=== PATIENT | male | born 1975 | race Caucasian/White ===

== ENCOUNTER 2019-06-25 07:44 | Emergency (ER) | payer OTHER ==
[2019-06-25 07:50] VITALS: BP 128/85; PULSE 90; RESP 18; TEMP 97.9
--- NOTE | 2019-06-25 08:09 | XR ---
EXAMINATION TYPE: XR elbow complete LT DATE OF EXAM: 06/25/2019 CLINICAL HISTORY: Jamming injury with pain and swelling. TECHNIQUE: Frontal, lateral and oblique images of the left elbow are obtained. COMPARISON: None FINDINGS: There are abnormal fat pad signs with bulging of the anterior fat pad and visualization of posterior fat pad on lateral image suggesting nondisplaced intra-articular fracture given history of trauma. Lucent line not clearly identified. Moderate Ulnohumeral spurring is seen. IMPRESSION: As above.
--- NOTE | 2019-06-25 08:12 | ED ---
General Adult HPI - General Chief complaint: Extremity Injury, Upper Stated complaint: elbow injury Time Seen by Provider: 06/25/19 07:52 Source: patient, RN notes reviewed Mode of arrival: ambulatory Limitations: no limitations - History of Present Illness Initial comments: Patient is a pleasant 44-year-old male presenting to the emergency Department w ith left elbow discomfort. Onset of symptoms was yesterday. Patient was cutting the grass when he hit a bump. Patient states this jammed his left elbow. Patient has had discomfort since that time. Discomfort feels like an ache however become severe with movement and use of the elbow. No history of chronic abdominal problems. No other area of injury or concern. - Related Data Allergies Allergy/AdvReac Type Severity Reaction Status Date / Time No Known Allergies Allergy Verified 06/25/19 07:50 Review of Systems ROS Statement: Those systems with pertinent positive or pertinent negative responses have been documented in the HPI. ROS Other: All systems not noted in ROS Statement are negative. Constitutional: Denies: fever Eyes: Denies: eye pain ENT: Denies: ear pain Respiratory: Denies: cough, dyspnea Cardiovascular: Denies: chest pain Endocrine: Denies: fatigue Gastrointestinal: Denies: abdominal pain Genitourinary: Denies: dysuria Musculoskeletal: Denies: back pain Skin: Denies: rash Neurological: Denies: weakness Past Medical History Past Medical History: No Reported History History of Any Multi-Drug Resistant Organisms: None Reported Past Surgical History: Ear Surgery, Orthopedic Surgery Additional Past Surgical History / Comment(s): right wrist Past Psychological History: No Psychological Hx Reported Smoking Status: Current every day smoker Past Alcohol Use History: Rare Past Drug Use History: None Reported General Exam Limitations: no limitations General appearance: alert, in no apparent distress Head exam: Present: normocephalic Eye exam: Present: normal appearance Respiratory exam: Present: normal lung sounds bilaterally Cardiovascular Exam: Present: regular rate, normal rhythm Expanded Peripheral pulses: 2+: Radial (L) Extremities exam: Present: full ROM, tenderness (left Posterior elbow with diffuse tenderness), other (Distal extremity is neurovascular intact.). Absent: joint swelling Neurological exam: Present: alert. Absent: motor sensory deficit Psychiatric exam: Present: normal affect, normal mood Skin exam: Present: normal color. Absent: erythema Course Vital Signs 06/25/19 07:46 Temperature 97.9 F Pulse Rate 90 Respiratory 18 Rate Blood Pressure 128/85 O2 Sat by Pulse 99 Oximetry Procedures - Orthopedic Splinting/Casting Injury #1 Side: left Upper Extremity Injury Location: long arm, elbow Upper Extremity Immobilizer: posterior splint Medical Decision Making - Radiology Data Radiology results: image reviewed (Posterior fat pad and borderline anterior sail sign) Disposition Clinical Impression: Elbow fracture, left Disposition: HOME SELF-CARE Condition: Stable Instructions (If sedation given, give patient instructions): Arm Fracture in Adults (ED) Additional Instructions: Please follow-up with primary care physician in the next couple days for recheck. Please follow-up also with orthopedics. Provided. [id number] Motrin as needed. Ice to affected area. Return for increased pain, swelling, hand problems, worsening symptoms or other concerns. Is patient prescribed a controlled substance at d/c from ED?: No Referrals: Duran Gallardo DO [Doctor of Osteopathic Medicine] - 1-2 days Benjamín Koo [STAFF PHYSICIAN] - 1-2 days Time of Disposition: 08:12
[2019-06-25] MEDS ORDERED: ACET/COD 300 MG/30 MG STARTER PACK 6 TAB BTL PO STA (08:18)
[2019-06-25] MEDS ORDERED: IBUPROFEN 600 MG STARTER PACK 4 TAB BTL PO STA (08:18)
== END 2019-06-25 08:35 | disposition home or self-care (01) ==
LOC: EC 07:44
DX: S42.402A Unspecified fracture of lower end of left humerus, initial encounter for closed fracture (principal); F17.200 Nicotine dependence, unspecified, uncomplicated; W28.XXXA Contact with powered lawn mower, initial encounter; Y93.89 Activity, other specified; Y92.89 Other specified places as the place of occurrence of the external cause
CPT/HCPCS: 29105; 99283